=== PATIENT | male | born 1955 | race Caucasian/White ===

== ENCOUNTER 2020-11-13 15:09 | Inpatient (IN) | payer MEDICARE ==
[2020-11-13] MEDS ORDERED: Fentanyl 100 MCG/2 ML VIAL SLOW IVP PRN (19:08)
[2020-11-13] MEDS ORDERED: Ondansetron PF 4 MG/2 ML Vial IVP PRN (19:09)
[2020-11-13 19:52] LABS: #Basophils 0.1 thou/uL (0.0-0.2); #Eosinphils 0.1 thou/uL (0.0-0.7); #Lymphocytes 3.9 thou/uL (1.20-3.40); #Monocytes 1.3 thou/uL (0.11-0.59); #Neutrophils 8.7 thou/uL (1.40-6.50); %Basophils 0.5 % (0.0-1.0); %Eosinophils 0.5 % (0.0-10.0); %Lymphocytes 27.6 % (21.0-51.0); %Monocytes 9.4 % (0.0-10.0); Mean Corpuscular HGB CONC 34.5 g/dL (32.0-36.0); Mean Corpuscular Hemoglobin 31.3 pg (27.0-31.0); Mean Corpuscular Volume 90.9 fL (78.0-98.0); Mean Platelet Volume 7.9 fL (7.4-10.4); Platelet Count 250 thou/uL (130-400); RBC Distribution Width 11.9 % (11.5-14.5); Red Blood Cell (RBC) Count 5.44 mill/uL (4.70-6.10)
[2020-11-13] MEDS: traMADol HCl 50 MG TAB PO PRN (20:06)
[2020-11-13] MEDS: Gabapentin 300 MG CAP PO SCH (20:07)
[2020-11-13] MEDS: Dextrose 5 % And 0.9 % NaCl 1,000 ML IV SCH (20:08)
[2020-11-13 20:10] LABS: Anion Gap 13 mmol/L (10-20); BUN (Urea Nitrogen) 14 mg/dL (8.4-25.7); Calc. Creatinine Clearance 84 mL/min (70-130); Calcium 9.7 mg/dL (7.8-10.44); Carbon Dioxide 29 mmol/L (23-31); Chloride 91 mmol/L (98-107); Glucose 143 mg/dL (80-115); Potassium 3.5 mmol/L (3.5-5.1); Sodium 129 mmol/L (136-145)
[2020-11-13] MEDS: Piperacillin/Tazobactam 3.375 GM in Sodium Chloride 0.9% 100 ML IVPB SCH (23:55)
[2020-11-14] MEDS: traMADol HCl 50 MG TAB PO PRN ×3 (03:50→21:21)
[2020-11-14 05:15] LABS: SARS-CoV-2 PCR by NAA Not Detected (NotDetected)
[2020-11-14] MEDS: Piperacillin/Tazobactam 3.375 GM in Sodium Chloride 0.9% 100 ML IVPB SCH ×4 (05:30→23:50)
[2020-11-14] MEDS: Gabapentin 300 MG CAP PO SCH ×3 (08:51→21:20)
[2020-11-14] MEDS: Aspirin Chewable 81 MG TAB PO SCH (08:51)
[2020-11-14] MEDS: Chlorthalidone 25 MG TAB PO SCH (08:52)
[2020-11-14] MEDS: Lisinopril 10 MG TAB PO SCH (08:53)
[2020-11-14] MEDS: Dextrose 5 % And 0.9 % NaCl 1,000 ML IV SCH (12:00)
[2020-11-14] MEDS ORDERED: Iopamidol-370 76% 500 ML 1 ML ONE (13:43)
[2020-11-14] MEDS ORDERED: GoLYTELY 4,000 ml Bottle PO SCH (17:00)
[2020-11-15] MEDS: Dextrose 5 % And 0.9 % NaCl 1,000 ML IV SCH ×2 (00:41→19:26)
[2020-11-15] MEDS: Piperacillin/Tazobactam 3.375 GM in Sodium Chloride 0.9% 100 ML IVPB SCH ×4 (05:44→23:50)
[2020-11-15] MEDS ORDERED: Protamine Sulfate 50 MG/5 ML VIAL ONE (06:30)
[2020-11-15] MEDS ORDERED: Heparin 5,000 UNITS/ML VIAL ONE (06:30)
[2020-11-15] MEDS ORDERED: Heparin 0 ML ONE (06:44)
[2020-11-15] MEDS ORDERED: Fentanyl 100 MCG/2 ML VIAL ONE (06:56)
[2020-11-15] MEDS ORDERED: Phenylephrine 10 MG/ML VIAL ONE (07:32)
[2020-11-15] MEDS ORDERED: Glycopyrrolate 0.2 MG/ML 5 ML SYRINGE ONE (07:44)
[2020-11-15] MEDS ORDERED: Dexamethasone 20 MG/5 ML VIAL ONE (07:44)
[2020-11-15] MEDS ORDERED: Rocuronium Bromide 10 MG/ML (10ML VIAL) ONE (07:44)
[2020-11-15] MEDS ORDERED: Protamine Sulfate 250 MG/25 ML VIAL ONE (07:44)
[2020-11-15] MEDS ORDERED: Ondansetron PF 4 MG/2 ML Vial ONE (07:44)
[2020-11-15] MEDS ORDERED: Lidocaine 1% PF 5 ML VIAL ONE (07:44)
[2020-11-15] MEDS ORDERED: PROPOFOL 200 MG/20 ML VIAL ONE (07:44)
[2020-11-15] MEDS ORDERED: Sodium Bicarb 50 MEQ/50 ML Abboject 8.4% SYRINGE ONE (07:44)
[2020-11-15] MEDS ORDERED: Calcium Chloride 1 GM/10 ML Abboject SYRINGE ONE (07:44)
[2020-11-15] MEDS ORDERED: Dexamethasone 4 mg/ml Vial ONE (09:55)
[2020-11-15] MEDS ORDERED: Bupivacaine 0.25% HCL 30 ML VIAL ONE (09:55)
[2020-11-15] MEDS ORDERED: Bupivacaine PF 0.5% 30 ML VIAL ONE (09:55)
[2020-11-15] MEDS ORDERED: EPINEPHrine 1 MG/ML AMP ONE (09:55)
[2020-11-15] MEDS ORDERED: HYDROmorphone 0.5 MG/0.5 ML SYRINGE ONE (10:17)
[2020-11-15] MEDS ORDERED: Naloxone HCl 0.4 mg/ml Vial IV PRN ×2 (11:01→11:02)
[2020-11-15] MEDS ORDERED: Promethazine HCl 25 MG/ML VIAL IM PRN ×3 (11:01→11:02)
[2020-11-15] MEDS ORDERED: Promethazine HCl 25 MG/ML VIAL SLOW IVP PRN (11:01)
[2020-11-15] MEDS ORDERED: diphenhydrAMINE 25 MG CAP PO PRN ×2 (11:01→11:02)
[2020-11-15] MEDS ORDERED: diphenhydrAMINE 50 MG/ML VIAL IVP PRN ×2 (11:01→11:02)
[2020-11-15] MEDS ORDERED: HYDROmorphone 2 MG/ML VIAL SLOW IVP PRN (11:01)
[2020-11-15] MEDS ORDERED: Zolpidem Tartrate 5 MG TAB PO PRN ×2 (11:01→11:02)
[2020-11-15] MEDS ORDERED: Ondansetron HCl/PF 4 MG/2 ML Vial IVP PRN (11:01)
[2020-11-15] MEDS ORDERED: diphenhydrAMINE 50 MG/ML VIAL IM PRN ×2 (11:01→11:02)
[2020-11-15] MEDS ORDERED: Ondansetron PF 4 MG/2 ML Vial IVP PRN ×3 (11:01→13:27)
[2020-11-15] MEDS ORDERED: fentaNYL Citrate/PF 2,000 MCG in Sodium Chloride 0.9% 60 ML IV PRN (11:02)
[2020-11-15] MEDS ORDERED: HYDROmorphone 10 mg/100 ml CADD IVPB PRN (11:02)
[2020-11-15] MEDS ORDERED: Communication Order-Pharmacy FS SCH ×2 (11:15)
[2020-11-15] MEDS ORDERED: hydrALAZINE 20 MG/ML VIAL ONE (11:53)
[2020-11-15] MEDS ORDERED: Nitroglycerin 50 MG/250 ML BOT 250 ML IVPB PRN (13:27)
[2020-11-15] MEDS ORDERED: Acetaminophen 325 MG TAB PO PRN (13:27)
[2020-11-15] MEDS ORDERED: hydrALAZINE 20 MG/ML VIAL SLOW IVP PRN (13:27)
[2020-11-15] MEDS: D5 1/2 NS w/20 mEq KCL 1,000 ML IV SCH ×2 (13:55→23:50)
[2020-11-15] MEDS: Aspirin Chewable 81 MG TAB PO SCH (19:24)
[2020-11-15] MEDS: Chlorthalidone 25 MG TAB PO SCH (19:25)
[2020-11-15] MEDS: Gabapentin 300 MG CAP PO SCH (19:25)
[2020-11-15] MEDS: Lisinopril 10 MG TAB PO SCH (19:25)
[2020-11-16 04:24] LABS: #Lymphocytes 2.7 thou/uL (1.20-3.40); #Monocytes 1.7 thou/uL (0.11-0.59); #Neutrophils 12.6 thou/uL (1.40-6.50); %Basophils 0.1 % (0.0-1.0); %Eosinophils 0.1 % (0.0-10.0); %Lymphocytes 15.8 % (21.0-51.0); %Monocytes 10.2 % (0.0-10.0); %Neutrophils 73.8 % (42.0-75.0); Hemoglobin 14.6 g/dL (14.0-18.0); Mean Corpuscular HGB CONC 33.9 g/dL (32.0-36.0); Mean Corpuscular Hemoglobin 31.3 pg (27.0-31.0); Mean Corpuscular Volume 92.4 fL (78.0-98.0); Mean Platelet Volume 7.8 fL (7.4-10.4); Platelet Count 238 thou/uL (130-400); RBC Distribution Width 11.9 % (11.5-14.5); Red Blood Cell (RBC) Count 4.68 mill/uL (4.70-6.10); White Blood Cell (WBC) Count 17.1 thou/uL (4.8-10.8)
[2020-11-16 04:45] LABS: Anion Gap 13 mmol/L (10-20); BUN (Urea Nitrogen) 10 mg/dL (8.4-25.7); Calc. Creatinine Clearance 106 mL/min (70-130); Calcium 8.4 mg/dL (7.8-10.44); Carbon Dioxide 25 mmol/L (23-31); Chloride 99 mmol/L (98-107); Glucose 129 mg/dL (80-115); Potassium 3.3 mmol/L (3.5-5.1); Sodium 134 mmol/L (136-145)
[2020-11-16] MEDS: Piperacillin/Tazobactam 3.375 GM in Sodium Chloride 0.9% 100 ML IVPB SCH ×3 (06:19→18:04)
[2020-11-16] MEDS: Aspirin Chewable 81 MG TAB PO SCH (08:44)
[2020-11-16] MEDS ORDERED: Potassium Chloride 20 MEQ in Premix Bag 1 BAG IVPB SCH (09:15)
[2020-11-16] MEDS: D5 1/2 NS w/20 mEq KCL 1,000 ML IV SCH ×2 (09:31→21:37)
[2020-11-16] MEDS: Chlorthalidone 25 MG TAB PO SCH (10:07)
[2020-11-16] MEDS: Lisinopril 10 MG TAB PO SCH (10:08)
[2020-11-17 03:49] LABS: #Eosinphils 0.1 thou/uL (0.0-0.7); #Lymphocytes 4.7 thou/uL (1.20-3.40); #Monocytes 1.5 thou/uL (0.11-0.59); #Neutrophils 9.5 thou/uL (1.40-6.50); %Basophils 0.2 % (0.0-1.0); %Eosinophils 0.6 % (0.0-10.0); %Lymphocytes 29.6 % (21.0-51.0); %Monocytes 9.5 % (0.0-10.0); %Neutrophils 60.2 % (42.0-75.0); Hemoglobin 14.4 g/dL (14.0-18.0); Mean Corpuscular HGB CONC 34.3 g/dL (32.0-36.0); Mean Corpuscular Hemoglobin 31.7 pg (27.0-31.0); Mean Corpuscular Volume 92.3 fL (78.0-98.0); Platelet Count 227 thou/uL (130-400); RBC Distribution Width 11.8 % (11.5-14.5); Red Blood Cell (RBC) Count 4.53 mill/uL (4.70-6.10); White Blood Cell (WBC) Count 15.7 thou/uL (4.8-10.8)
[2020-11-17 04:09] LABS: Anion Gap 14 mmol/L (10-20); BUN (Urea Nitrogen) 13 mg/dL (8.4-25.7); Calc. Creatinine Clearance 103 mL/min (70-130); Calcium 8.6 mg/dL (7.8-10.44); Carbon Dioxide 23 mmol/L (23-31); Chloride 99 mmol/L (98-107); Glucose 110 mg/dL (80-115); Potassium 3.6 mmol/L (3.5-5.1); Sodium 132 mmol/L (136-145)
[2020-11-17] MEDS: Piperacillin/Tazobactam 3.375 GM in Sodium Chloride 0.9% 100 ML IVPB SCH ×4 (05:50→18:04)
[2020-11-17] MEDS: Clopidogrel Bisulfate 75 MG TAB PO SCH (08:57)
[2020-11-17] MEDS: Aspirin Chewable 81 MG TAB PO SCH (08:57)
[2020-11-17] MEDS: Lisinopril 10 MG TAB PO SCH (08:58)
[2020-11-17] MEDS: Chlorthalidone 25 MG TAB PO SCH (09:30)
[2020-11-17] MEDS ORDERED: Fentanyl CADD 100 ML IV SCH (10:45)
[2020-11-18] MEDS: Piperacillin/Tazobactam 3.375 GM in Sodium Chloride 0.9% 100 ML IVPB SCH ×5 (00:07→23:13)
[2020-11-18] MEDS: Clopidogrel Bisulfate 75 MG TAB PO SCH (08:22)
[2020-11-18] MEDS: Lisinopril 10 MG TAB PO SCH (08:22)
[2020-11-18] MEDS: Chlorthalidone 25 MG TAB PO SCH (08:22)
[2020-11-18] MEDS: Aspirin Chewable 81 MG TAB PO SCH (08:22)
[2020-11-18] MEDS: Sulfameth/Trimethoprim DS 800-160mg TAB PO SCH ×2 (08:23→20:12)
[2020-11-19] MEDS: Piperacillin/Tazobactam 3.375 GM in Sodium Chloride 0.9% 100 ML IVPB SCH ×2 (05:36→11:37)
[2020-11-19] MEDS ORDERED: HYDROcodone/Acetaminophen 5/325 mg Tablet PO PRN ×2 (06:36)
[2020-11-19] MEDS: Chlorthalidone 25 MG TAB PO SCH (08:11)
[2020-11-19] MEDS: Lisinopril 10 MG TAB PO SCH (08:11)
[2020-11-19] MEDS: Sulfameth/Trimethoprim DS 800-160mg TAB PO SCH ×2 (08:11→20:57)
[2020-11-19] MEDS: Clopidogrel Bisulfate 75 MG TAB PO SCH (08:11)
[2020-11-19] MEDS: Aspirin Chewable 81 MG TAB PO SCH (08:11)
[2020-11-19 11:54] VITALS: BMI 18.4
[2020-11-20] MEDS: Sulfameth/Trimethoprim DS 800-160mg TAB PO SCH (09:18)
[2020-11-20] MEDS: Lisinopril 10 MG TAB PO SCH (09:18)
[2020-11-20] MEDS: Clopidogrel Bisulfate 75 MG TAB PO SCH (09:18)
[2020-11-20] MEDS: Chlorthalidone 25 MG TAB PO SCH (09:18)
[2020-11-20] MEDS: Aspirin Chewable 81 MG TAB PO SCH (09:19)
[2020-11-20 12:29] VITALS: BP 111/59; TEMP 98.3
[2020-11-25 15:28] LABS: Analyzer IN Cardio OR; Base Excess (BEa) -1.2 mEq/L (-2.0 to +3.0); CO2 Tension 41.8 mmHg (35.0-45.0); Carboxyhemoglobin (COHb) 0.7 gm% (0.0-3.0); Hemoglobin (Hb) 15.1 g/dL (14.0-18.0); O2 Tension (PaO2), arterial 220.2 mmHg (> 80.0); Potassium - ABG Lab 2.66 mmol/L (3.70-5.30); Puncture Site Arterial Line; pH, Arterial 7.38 (7.35-7.45)
== END 2020-11-20 13:17 | DRG 271 ==
LOC: 2NO 15:50 → CCU 11-15 11:30 → 2NO 11-18 09:04
PROVIDERS: ADMIT Thoracic Surgery (Cardiothoracic Vascular Surgery); ATTEND Thoracic Surgery (Cardiothoracic Vascular Surgery)
PROC: 04100JK Bypass Abdominal Aorta to Bilateral Femoral Arteries with Synthetic Substitute, Open Approach (ICD-10-PCS; principal; 2020-11-15)
PROC: 04CL0ZZ Extirpation of Matter from Left Femoral Artery, Open Approach (ICD-10-PCS; 2020-11-15)
PROC: 04CK0ZZ Extirpation of Matter from Right Femoral Artery, Open Approach (ICD-10-PCS; 2020-11-15)
DX: I73.9 Peripheral vascular disease, unspecified (principal); E80.1 Porphyria cutanea tarda; I74.09 Other arterial embolism and thrombosis of abdominal aorta; I10 Essential (primary) hypertension; Z20.822 Contact with and (suspected) exposure to COVID-19; Z79.82 Long term (current) use of aspirin; Z79.02 Long term (current) use of antithrombotics/antiplatelets
CPT/HCPCS: 36415; 75635; 80048; 82805; 85025; 86850; 86900; 86901; 87635; J0171; J0360; J1100; J1170; J1642; J1644; J2370; J2405; J2543; J2704; J2720; J3010; J3480; J3490; Q0163; Q9967; S0020; U0003; U0005